=== PATIENT | male | born 1950 | race Caucasian/White ===

== ENCOUNTER → 2018-07-06 | Outpatient (CLI) | payer OTHER ==
[~2018-07-06] MED LIST: AMIO200T42 PO; ASPI-496 PO; ATOR40TA PO; CLOP75TA52 PO; LISI5TAB7 PO; METO25TA35 PO/NG; NITR0.4T28 SL; TETR-16 PO
== END | disposition home or self-care (01) ==
LOC: CVU 14:43
PROVIDERS: ATTEND Internal Medicine Cardiovascular Disease
DX: E78.2 Mixed hyperlipidemia (principal); I10 Essential (primary) hypertension; I25.10 Atherosclerotic heart disease of native coronary artery without angina pectoris; F12.90 Cannabis use, unspecified, uncomplicated; Z95.5 Presence of coronary angioplasty implant and graft
CPT/HCPCS: 93880